=== PATIENT | female | born 1935 | race Caucasian/White ===

== ENCOUNTER 2016-10-24 07:42 | Emergency (ER) | payer MEDICARE, SELFPAY ==
[2016-10-24] MEDS ORDERED: DIPH,PERTUS(ACELL)TETVAC-LF 0.5 ML VIAL IM ONE (08:20)
--- NOTE | 2016-10-24 08:25 | ED ---
Lower Extremity Injury HPI - General Chief Complaint: Extremity Injury, Lower Stated Complaint: LEFT KNEE PAIN Time Seen by Provider: 10/24/16 08:01 Source: patient Mode of arrival: wheelchair Limitations: no limitations - History of Present Illness Initial Comments: 81-year-old female patient presents to emergency department today for complaints of left knee pain. Patient states his pain started yesterday. She denies any trauma or memory of a fall. Family states a fall is possible due to the patient having Alzheimer's and memory issues. Patient states the pain is worse when she tries to bear weight or bend the knee. She states most of her pain is to the posterior knee. There is a small abrasion with surrounding erythema to the anterior knee. Patient denies any fever or chills. She denies any headache, dizziness, weakness, chest pain, back pain, shortness of breath, abdominal pain, nausea, vomiting, hematuria, dysuria, urinary frequency, urinary urgency, or any other injuries. She denies any numbness or tingling in the extremity. - Related Data Previous Rx's Medication Instructions Recorded Acetaminophen-Codeine 300-30mg 1 tab PO Q6H PRN #20 tablet 10/24/16 [Tylenol #3] Cephalexin [Keflex] 500 mg PO Q6HR #40 cap 10/24/16 Allergies Allergy/AdvReac Type Severity Reaction Status Date / Time latex Allergy Rash/Hives Verified 10/24/16 07:52 Review of Systems ROS Statement: Those systems with pertinent positive or pertinent negative responses have been documented in the HPI. ROS Other: All systems not noted in ROS Statement are negative. Past Medical History Past Medical History: Dementia History of Any Multi-Drug Resistant Organisms: None Reported Past Surgical History: Hysterectomy, Joint Replacement Additional Past Surgical History / Comment(s): hip replacement, bilateral carpal tunnel release, right shoulder Past Psychological History: No Psychological Hx Reported Smoking Status: Never smoker Past Alcohol Use History: None Reported Past Drug Use History: None Reported General Exam Limitations: no limitations General appearance: alert, in no apparent distress Head exam: Present: atraumatic, normocephalic, normal inspection Eye exam: Present: normal appearance, PERRL, EOMI. Absent: scleral icterus, conjunctival injection, periorbital swelling ENT exam: Present: normal exam, normal oropharynx, mucous membranes moist Neck exam: Present: normal inspection, full ROM. Absent: tenderness, meningismus, lymphadenopathy Respiratory exam: Present: normal lung sounds bilaterally, rhonchi (Right lung base). Absent: respiratory distress, wheezes, rales, stridor Cardiovascular Exam: Present: regular rate, normal rhythm, normal heart sounds. Absent: systolic murmur, diastolic murmur, rubs, gallop, clicks GI/Abdominal exam: Present: soft, normal bowel sounds. Absent: distended, tenderness, guarding, rebound, rigid Extremities exam: Present: full ROM, normal capillary refill, other (Pedal pulses intact 2+.). Absent: normal inspection (Left anterior knee abrasion, surrounding erythema. Mild edema), tenderness, pedal edema, joint swelling, calf tenderness Back exam: Present: normal inspection Neurological exam: Present: alert, CN II-XII intact. Absent: oriented X3 ( Oriented 2. Normal for patient per family.) Psychiatric exam: Present: normal affect, normal mood Skin exam: Present: warm, dry, intact, normal color. Absent: rash Course Vital Signs 10/24/16 07:47 Temperature 97.9 F Pulse Rate 72 Respiratory 18 Rate Blood Pressure 135/58 O2 Sat by Pulse 95 Oximetry Medical Decision Making - Medical Decision Making 81-year-old female came in for evaluation of left knee pain. X-ray did not reveal any acute osseous lesion or significant joint effusion. Physical exam did reveal some cellulitis to the anterior knee is also small abrasion to the knee. Patient's tetanus will be updated. She'll be placed on Keflex as an outpatient. Instructed to follow-up with her primary care physician if symptoms don't start to improve over the next 1-2 days. Instructed to return for any new, worsening, or concerning symptoms. Patient and family verbalized understanding and agreement with this plan. - Radiology Data Radiology results: report reviewed, image reviewed Complete x-ray of the left knee reveals no acute osseous lesion. No significant joint effusion. Disposition Clinical Impression: Knee injury, Cellulitis of left knee Disposition: HOME SELF-CARE Condition: Stable Instructions: Knee Pain (ED), Cellulitis (ED) Additional Instructions: Use Orion wrap for comfort. Ice on the knee for 20 minutes at a time, at least 4 times per day. Complete antibiotic prescription and full. Up with primary care physician if symptoms don't start to improve over the next 1-2 days. Return for any new, worsening or concerning symptoms. Prescriptions: Acetaminophen-Codeine 300-30mg [Tylenol #3] 1 tab PO Q6H PRN #20 tablet PRN Reason: pain Cephalexin [Keflex] 500 mg PO Q6HR #40 cap Referrals: Augusto Brothers MD [Primary Care Provider] - 1-2 days Time of Disposition: 08:49
--- NOTE | 2016-10-24 08:33 | XR ---
EXAMINATION TYPE: XR knee complete LT DATE OF EXAM ORDERED: 10/24/2016 8:29 AM HISTORY: Pain. COMPARISON: None. FINDINGS: The bones are osteopenic, likely on the basis of osteoporosis. Joint spaces are reasonably well-maintained. There is no chondrocalcinosis. No acute fracture is seen. There is no joint effusio n. IMPRESSION: NO ACUTE OSSEOUS LESION.
[2016-10-24 09:01] VITALS: BP 120/79; PULSE 79; RESP 16; TEMP 99
== END 2016-10-24 09:01 | disposition home or self-care (01) ==
LOC: EC 07:42
DX: S80.212A Abrasion, left knee, initial encounter (principal); L03.116 Cellulitis of left lower limb; Z23 Encounter for immunization; Z96.649 Presence of unspecified artificial hip joint; Z91.040 Latex allergy status; X58.XXXA Exposure to other specified factors, initial encounter
CPT/HCPCS: 90471; 90715; 99283

== ENCOUNTER 2023-08-23 01:54 | Inpatient (IN) | payer MEDICARE, OTHER ==
[2023-08-23] MEDS ORDERED: ONDANSETRON 4 MG/2 ML VIAL IVP PRN (02:47)
[2023-08-23] MEDS ORDERED: NALOXONE 0.4 MG/ML 1 ML VIAL IV PRN (02:47)
[2023-08-23] MEDS ORDERED: MORPHINE SULFATE 4 MG/ML SYRINGE IV PRN (02:47)
--- NOTE | 2023-08-23 02:49 | ED ---
Fall HPI - General Stated Complaint: Fall Time Seen by Provider: 08/23/23 01:58 - History of Present Illness Initial Comments: Demented 87-year-old female brought to the ER today by ambulance for evaluation after an unwitnessed fall. Patient was found sitting on the ground next to her bed complained of pain in the bilateral hips. Daughter was contacted by telephone and confirmed that the patient had a right hip fracture repaired by Dr. Kovacs at [facility] in April 2023. Complaint: fall -: unknown Fall From: out of bed When Fall Occurred: other Fall Witnessed: no Place Fall Occurred: assisted/SNF Location - Extremities: Left: Thigh, Right: Thigh Severity: severe Associated Symptoms: denies - Related Data Previous Rx's Medication Instructions Recorded Acetaminophen-Codeine 300-30mg 1 tab PO Q6H PRN #20 tablet 10/24/16 [Tylenol #3] Cephalexin [Keflex] 500 mg PO Q6HR #40 cap 10/24/16 Allergies Allergy/AdvReac Type Severity Reaction Status Date / Time latex Allergy Rash/Hives Verified 10/24/16 07:52 Review of Systems ROS Statement: Those systems with pertinent positive or pertinent negative responses have been documented in the HPI. ROS Other: All systems not noted in ROS Statement are negative. Past Medical History Past Medical History: Dementia History of Any Multi-Drug Resistant Organisms: ESBL Date of last positivie culture/infection: 05/17/23 MDRO Source:: Urine Past Surgical History: Hysterectomy, Joint Replacement Additional Past Surgical History / Comment(s): hip replacement, bilateral carpal tunnel release, right shoulder Past Psychological History: No Psychological Hx Reported Past Alcohol Use History: None Reported Past Drug Use History: None Reported General Exam General appearance: alert Head exam: Present: atraumatic Eye exam: Present: PERRL ENT exam: Present: mucous membranes dry Respiratory exam: Absent: respiratory distress Cardiovascular Exam: Present: regular rate GI/Abdominal exam: Present: soft Extremities exam: Present: tenderness Left Hip exam: Present: tenderness. Absent: full ROM, dislocation Right Hip exam: Present: tenderness. Absent: full ROM, dislocation Neurological exam: Present: other (oriented to self) Skin exam: Present: warm, dry, intact Course Vital Signs 08/23/23 02:00 Temperature 97.8 F Pulse Rate 68 Respiratory 16 Rate Blood Pressure 133/67 O2 Sat by Pulse 92 L Oximetry Medical Decision Making - Medical Decision Making Was pt. sent in by a medical professional or institution (, PA, FLIGHT READINESS TECHNICIAN, urgent care, hospital, or assisted...) When possible be specific @ -[facility] Did you speak to anyone other than the patient for history (EMS, parent, family, police, friend...)? What history was obtained from this source @ -EMS, patient's daughter Did you review nursing and triage notes (agree or disagree)? Why? @ -I reviewed and agree with nursing and triage notes Were old charts reviewed (outside hosp., previous admission, EMS record, old EKG, old radiological studies, urgent care reports/EKG's, assisted records)? Report findings @ -No old charts were reviewed Differential Diagnosis (chest pain, altered mental status, abdominal pain women, abdominal pain men, vaginal bleeding, weakness, fever, dyspnea, syncope, headache, dizziness, GI bleed, back pain, seizure, CVA, palpatations, mental health)? @ -Differential includes fracture, contusion EKG interpreted by me (3pts min.). @ -As above X-rays interpreted by me (1pt min.). @ -X-ray of the right hip reveals previous repair with the nail, lesser trochanter is fractured but not necessarily acute X-ray of the left hip reveals an acute greater trochanteric fracture CT interpreted by me (1pt min.). @ - CT brain and C-spine with no acute intracranial processes, no obviously displaced cervical spine fractures US interpreted by me (1pt. min.). @ -None done What testing was considered but not performed or refused? (CT, X-rays, U/S, labs)? Why? @ -None What meds were considered but not given or refused? Why? @ -None Did you discuss the management of the patient with other professionals (professionals i.e. , PA, FLIGHT READINESS TECHNICIAN, lab, RT, psych nurse, manager social services, package sorter, teacher, chief legal officer, family service caseworker)? Give summary @ -S, orthopedics Dr. Huizar Was smoking cessation discussed for >3mins.? @ -No Was critical care preformed (if so, how long)? @ -No Were there social determinants of health that impacted care today? How? (Homelessness, low income, unemployed, alcoholism, drug addiction, transportation, low edu. Level, literacy, decrease access to med. care, fpc, rehab)? @ -No Was there de-escalation of care discussed even if they declined (Discuss DNR or withdrawal of care, Hospice)? DNR status @ -No What co-morbidities impacted this encounter? (DM, HTN, Smoking, COPD, CAD, Cancer, CVA, ARF, Chemo, Hep., AIDS, mental health diagnosis, sleep apnea, morbid obesity)? @ -Dementia Was patient admitted / discharged? Hospital course, mention meds given and route, prescriptions, significant lab abnormalities, going to OR and other pertinent info. @ -Admit Bedside x-rays were reviewed and reveal fractures in the bilateral hips, these findings were discussed with the patient's daughter and then with Dr. Huizar who reviewed the images states the right hip is chronic due to the previous nail procedures, left hip is an acute greater troch fracture recommends nonoperative management, admit to medicine Undiagnosed new problem with uncertain prognosis? @ -No Drug Therapy requiring intensive monitoring for toxicity (Heparin, Nitro, Insulin, Cardizem)? @ -No Were any procedures done? @ -No Diagnosis/symptom? @ -Left acute greater trochanter fracture Acute, or Chronic, or Acute on Chronic? @ -Acute Uncomplicated (without systemic symptoms) or Complicated (systemic symptoms)? @ -default Side effects of treatment? @ -No Exacerbation, Progression, or Severe Exacerbation? @ -No Poses a threat to life or bodily function? How? (Chest pain, [place], [place], pneumonia, PE, COPD, DKA, ARF, appy, cholecystitis, CVA, Diverticulitis, Homicidal, Suicidal, threat to staff... and all critical care pts) @ -No Disposition Clinical Impression: Fracture of greater trochanter of left femur, Dementia Disposition: ADMITTED IP TO THIS HOSP Condition: Stable Referrals: Augusto Brothers MD [Primary Care Provider] - 1-2 days
--- NOTE | 2023-08-23 03:09 | CT ---
EXAM: CT Head Without Intravenous Contrast CLINICAL HISTORY: ITS.REASON CT Reason: fall TECHNIQUE: Axial computed tomography images of the head/brain without intravenous contrast. CTDI is 45.2 mGy and DLP is 977.3 mGy-cm. This CT exam was performed using one or more of the following dose reduction techniques: automated exposure control, adjustment of the mA and/or kV according to patient size, and/or use of iterative reconstruction technique. COMPARISON: No relevant prior studies available. FINDINGS: Brain: No hemorrhage or mass effect. Ventricles: No hydrocephalus. Bones/joints: Unremarkable. Soft tissues: Unremarkable. Sinuses: No air fluid level. Mastoid air cells: Clear. IMPRESSION: No acute hemorrhage, hydrocephalus, or mass effect. EXAM: CT Cervical Spine Without Intravenous Contrast CLINICAL HISTORY: ITS.REASON CT Reason: fall TECHNIQUE: Axial computed tomography images of the cervical spine without intravenous contrast. CTDI is 7.4 mGy and DLP is 202.2 mGy-cm. This CT exam was performed using one or more of the following dose reduction techniques: automated exposure control, adjustment of the mA and/or kV according to patient size, and/or use of iterative reconstruction technique. COMPARISON: No relevant prior studies available. FINDINGS: Vertebrae: No acute fracture. Discs/spinal canal/neural foramina: degenerative changes. Soft tissues: No prevertebral swelling. IMPRESSION: No acute fracture or subluxation.
[2023-08-23 03:16] LABS: Basophils # (A) 0.1 k/uL (0-0.2); Basophils % (A) 1 %; Eosinophils # (A) 0.3 k/uL (0-0.7); Eosinophils % (A) 3 %; HCT 35.8 % (34.0-46.0); HGB 11.9 gm/dL (11.4-16.0); Hypochromasia Slight; Lymphocytes # (A) 1.6 k/uL (1.0-4.8); Lymphocytes % (A) 16 %; MCH 28.1 pg (25.0-35.0); MCHC 33.1 g/dL (31.0-37.0); MCV 84.8 fL (80.0-100.0); Mean Platelet Volume 7.7; Monocytes # (A) 0.6 k/uL (0-1.0); Monocytes % (A) 6 %; Neutrophils # (A) 7.4 k/uL (1.3-7.7); Neutrophils % (A) 73 %; Platelet Count 309 k/uL (150-450); RBC 4.22 m/uL (3.80-5.40); RDW 14.2 % (11.5-15.5); WBC 10.2 k/uL (3.8-10.6)
[2023-08-23 03:36] LABS: Amphetamine Screen,Urine Not Detected (NotDetected); Barbiturate Screen,Urine Not Detected (NotDetected); Benzodiazepines Screen,Urine Not Detected (NotDetected); Cocaine Screen,Urine Not Detected (NotDetected); Methadone Screen, Urine Not Detected (NotDetected); Opiate Screen,Urine Not Detected (NotDetected); Oxycodone Screen, Urine Not Detected (NotDetected); Partial Thromboplastin Time 22.1 sec (22.0-30.0); Phencyclidine Screen,Urine Not Detected (NotDetected); Prothrombin Time 11.2 sec (10.0-12.5); Tricyclic Antidepressant,Urine Not Detected (NotDetected); Urn Cannabinoid Scrn Not Detected (NotDetected)
[2023-08-23] MEDS: 0.9% NACL WITH KCL 20 MEQ/L 1,000 ML IV SCH (03:40)
[2023-08-23 03:55] LABS: ALT 19 U/L (4-34); AST 24 U/L (14-36); African American GFR (CKD) 57 (>60 ml/min/1.73 sqM); Albumin 3.6 g/dL (3.5-5.0); Alcohol <10 mg/dL; Alkaline Phosphatase 111 U/L (38-126); Anion Gap 7 mmol/L; Blood Urea Nitrogen 21 mg/dL (7-17); Calcium 9.3 mg/dL (8.4-10.2); Carbon Dioxide 24 mmol/L (22-30); Chloride 107 mmol/L (98-107); Glucose 109 mg/dL (74-99); Non-African American GFR(CKD) 50 (>60 ml/min/1.73 sqM); Potassium 4.3 mmol/L (3.5-5.1); Sodium 138 mmol/L (137-145); Total Bilirubin 0.5 mg/dL (0.2-1.3); Total Protein 6.8 g/dL (6.3-8.2)
--- NOTE | 2023-08-23 04:52 | XR ---
EXAM: XR Chest, 1 View CLINICAL HISTORY: ITS.REASON XR Reason: fall TECHNIQUE: Frontal view of the chest. COMPARISON: No relevant prior studies available. IMPRESSION: Cardiomegaly. Mildly Elevated right hemidiaphragm No acute findings.
--- NOTE | 2023-08-23 04:53 | XR ---
ADDENDUM - Added by Nicole Membreno MD on 08/23/2023 4:54 AM (-08:00) EXAM: XR Pelvis, 1 or 2 Views CLINICAL HISTORY: ITS.REASON XR Reason: fall TECHNIQUE: Frontal view of the pelvis. COMPARISON: No relevant prior studies available. IMPRESSION: Right femoral lesser trochanter is displaced medially compared to the rest of the femur. Age-indeterminate fracture. Right femoral ORIF. Left hip arthroplasty. EXAM: XR Pelvis, 1 or 2 Views CLINICAL HISTORY: ITS.REASON XR Reason: fall TECHNIQUE: Frontal view of the pelvis. COMPARISON: No relevant prior studies available. FINDINGS: Bones/joints: No acute fracture. No dislocation. Left hip arthroplasty hardware. Right femoral ORIF. Soft tissues: Unremarkable. IMPRESSION: No acute findings.
--- NOTE | 2023-08-23 04:55 | XR ---
EXAM: XR Bilateral Hips With Pelvis When Performed, 4 or More Views CLINICAL HISTORY: ITS.REASON XR Reason: fall TECHNIQUE: Four or more views of the bilateral hips with pelvis when performed. COMPARISON: No relevant prior studies available. IMPRESSION: Right femoral lesser trochanter is displaced medially compared to the rest of the femur. Consider cross-sectional imaging. Age-indeterminate fracture. Right femoral ORIF. Left hip arthroplasty.
[2023-08-23] MEDS ORDERED: traMADol 50 MG TAB PO PRN (08:29)
[2023-08-23] MEDS ORDERED: ACETAMINOPHEN TAB 325 MG TAB PO PRN (08:29)
[2023-08-23] MEDS ORDERED: SENNOSIDES 8.6 MG TAB PO PRN (08:29)
[2023-08-23] MEDS ORDERED: QUEtiapine 25 MG TAB PO PRN (08:41)
--- NOTE | 2023-08-23 08:51 | P.HPIM ---
History of Present Illness This is a pleasant 87 years old female with past medical history of dementia from [facility] Patient was found on the ground at [facility], it is not known if patient lost consciousness or she syncopized. Patient was sent to the emergency room after that Currently patient awake alert might be agitated She can't remember her first name only, she cannot remember last name, she is confused to the surrounding She is somewhat poor historian but answers questions and communicate. She denies chest pain or dyspnea. No abdominal pain, no urinary complaints. Earlier she was complaining of from feet pain and dyspnea she has some redness in her left small toes and forefoot Sitter at bedside Patient is hemodynamically stable Labs reviewed including CBC, BMP and liver enzymes are unremarkable Urine drug screen and alcohol level were negative Influenza A and type B, RSV, SARS (coronavirus) are and detected Pelvis x-ray showing no fracture Hip x-ray showing displaced right lesser trochanter Chest x-ray showed no acute process CT of the head and neck is negative for any acute process Review of Systems Review of systems CONSTITUTIONAL: No fever, no malaise, no fatigue. HEENT: No recent visual problems or hearing problems. Denied any sore throat. CARDIOVASCULAR: No orthopnea, PND, no palpitations, no syncope. PULMONARY: No shortness of breath, no cough, no hemoptysis. GASTROINTESTINAL: No diarrhea, no nausea, no vomiting, no abdominal pain. Normoactive bowel sounds. NEUROLOGICAL: No headaches, no weakness, no numbness. HEMATOLOGICAL: Denies any bleeding or petechiae. GENITOURINARY: Denies any burning micturition, frequency, or urgency. MUSCULOSKELETAL/RHEUMATOLOGICAL: Denies any joint pain, swelling, or any muscle pain. ENDOCRINE: Denies any polyuria or polydipsia. Past Medical History Past Medical History: Dementia History of Any Multi-Drug Resistant Organisms: ESBL Date of last positivie culture/infection: 05/17/23 MDRO Source:: Urine Past Surgical History: Hysterectomy, Joint Replacement Additional Past Surgical History / Comment(s): hip replacement, bilateral carpal tunnel release, right shoulder Past Psychological History: No Psychological Hx Reported Past Alcohol Use History: None Reported Past Drug Use History: None Reported Medications and Allergies Home Medications Medication Instructions Recorded Confirmed Type Acetaminophen Tab [Tylenol] 650 mg PO Q4H PRN 08/23/23 08/23/23 History Amiodarone [Cordarone] 100 mg PO DAILY 08/23/23 08/23/23 History Ascorbic Acid [Vitamin C] 500 mg PO DAILY 08/23/23 08/23/23 History Aspirin EC [Ecotrin Low Dose] 81 mg PO DAILY 08/23/23 08/23/23 History Cyanocobalamin [Vitamin B-12] 500 mcg PO DAILY 08/23/23 08/23/23 History Diclofenac Sodium Gel [Voltaren 1% 1 applic TOPICAL Q6H PRN 08/23/23 08/23/23 History Gel] Divalproex Sprinkle [Depakote 125 mg PO DAILY@1700 08/23/23 08/23/23 History Sprinkle] Ergocalciferol [Vitamin D2 (1250 1,250 mcg PO NINO 08/23/23 08/23/23 History Mcg = 55823 Iu)] Famotidine [Pepcid] 20 mg PO DAILY@0600 08/23/23 08/23/23 History Lactose-Reduced Food [Ensure Plus] 1 can PO TID 08/23/23 08/23/23 History Melatonin 3 mg PO HS 08/23/23 08/23/23 History Sennosides [Senokot] 8.6 mg PO BID PRN 08/23/23 08/23/23 History Z-Guard 1 applic TOPICAL BID 08/23/23 08/23/23 History Zinc Gluconate [Zinc] 50 mg PO DAILY 08/23/23 08/23/23 History amLODIPine [Norvasc] 2.5 mg PO DAILY 08/23/23 08/23/23 History traMADol HCl [Ultram] 50 mg PO TID PRN 08/23/23 08/23/23 History Allergies Allergy/AdvReac Type Severity Reaction Status Date / Time latex Allergy Rash/Hives Verified 08/23/23 07:44 Physical Exam Vitals: Vital Signs Temp Pulse Resp BP Pulse Ox 08/23/23 06:00 66 18 123/57 99 08/23/23 05:00 72 18 90/70 99 08/23/23 04:00 69 18 115/61 99 08/23/23 03:43 71 16 102/65 99 08/23/23 02:00 97.8 F 68 16 133/67 92 L Intake and Output 08/22/23 08/23/23 08/23/23 22:59 06:59 14:59 Other: Weight 55.111 kg -GENERAL: The patient is alert and oriented x0, mildly agitated and restless, not in any acute distress. Well developed, well nourished. HEENT: Pupils are round and equally reacting to light. EOMI. No scleral icterus. No conjunctival pallor. Normocephalic, atraumatic. No pharyngeal erythema. No thyromegaly. CARDIOVASCULAR: S1 and S2 present. No murmurs, rubs, or gallops. PULMONARY: Chest is clear to auscultation, no wheezing , no crackles. ABDOMEN: Soft, nontender, nondistended, normoactive bowel sounds. No palpable organomegaly. MUSCULOSKELETAL: No joint swelling or deformity. -EXTREMITIES: No cyanosis, clubbing, or pedal edema. Redness and swelling of the left L5 toes and forefoot with no significant open wound or discharge but has bad nails NEUROLOGICAL: Gross neurological examination did not reveal any focal deficits. SKIN: No rashes. no petechiae. Results CBC & Chem 7: 08/23/23 02:56 08/23/23 02:56 Labs: Abnormal Lab Results - Last 24 Hours (Table) 08/23/23 Range/Units 02:56 BUN 21 H (7-17) mg/dL Glucose 109 H (74-99) mg/dL Assessment and Plan Assessment: Found on the ground, fell at [facility], unknown if loss of consciousness Dementia, with behavioral problems and agitation Displaced right lesser trochanter Possible cellulitis of the left forefoot Dehydration Plan: Continue with normal saline 50 mL per hour 25 hours Orthopedic team were consulted for possible hip fracture Check EKG and urinalysis and bladder scan Sitter at bedside Seroquel when necessary Keflex for cellulitis Labs and medication were reviewed.. Continue same treatment. Continue with symptomatic treatment. Resume home medication. Monitor labs and vitals. DVT and GI prophylaxis. Further recommendations as per clinical course of the patient DVT prophylaxis: Subcutaneous heparin GI Prophylaxis: Pepcid Prognosis is guarded
[2023-08-23] MEDS: MORPHINE SULFATE 2 MG/ML SYRINGE IVP PRN ×4 (09:18→22:05)
[2023-08-23] MEDS: CEPHALEXIN 500 MG CAP PO SCH ×3 (13:03→21:51)
[2023-08-23] MEDS: HEPARIN SODIUM,PORCINE 5,000 UNIT/ML 1 ML VIAL SQ SCH ×2 (13:33→21:50)
[2023-08-23] MEDS: amLODIPine 2.5 MG TAB PO SCH (13:33)
[2023-08-23] MEDS: CYANOCOBALAMIN 500 MCG TAB PO SCH (13:33)
[2023-08-23] MEDS: ASPIRIN 81 MG PO SCH (13:33)
[2023-08-23] MEDS: ASCORBIC ACID 500 MG TAB PO SCH (13:33)
--- NOTE | 2023-08-23 13:46 | P.CNOR ---
History of Present Illness - [facility] Consult date: 08/23/23 Consult reason: fracture (Left greater trochanter fracture) History of present illness: The patient is an 87-year-old female who presented to the emergency department at [facility] via EMS from [facility] last night. She is a resident at [facility] and was found sitting beside her bed. She was complaining of bilateral hip pain. She is status post IT nail of the right hip by Dr. Kovacs at [facility] in April 2023 and left total hip arthroplasty by Dr. Morataya in 2000. CT of the head and neck revealed no acute fractures or hemorrhage. X- rays of the bilateral hip and pelvis reveal a nondisplaced greater trochanter fracture on the left and a stable IT fixation on the right without new fra ctures. Orthopedics was consulted for further evaluation and care. Today, the patient is very confused with a history of dementia. She is alert and able to answer simple questions. There is a sitter at the bedside while in the ER. No family present. Review of Systems ROS unobtainable: due to mental status Past Medical History Past Medical History: Dementia History of Any Multi-Drug Resistant Organisms: ESBL Year Discovered:: 05/17/23 MDRO Source:: Urine Past Surgical History: Hysterectomy, Joint Replacement Additional Past Surgical History / Comment(s): hip replacement, bilateral carpal tunnel release, right shoulder Past Psychological History: No Psychological Hx Reported Past Alcohol Use History: None Reported Past Drug Use History: None Reported Medications and Allergies Home Medications Medication Instructions Recorded Confirmed Type Acetaminophen Tab [Tylenol] 650 mg PO Q4H PRN 08/23/23 08/23/23 History Amiodarone [Cordarone] 100 mg PO DAILY 08/23/23 08/23/23 History Ascorbic Acid [Vitamin C] 500 mg PO DAILY 08/23/23 08/23/23 History Aspirin EC [Ecotrin Low Dose] 81 mg PO DAILY 08/23/23 08/23/23 History Cyanocobalamin [Vitamin B-12] 500 mcg PO DAILY 08/23/23 08/23/23 History Diclofenac Sodium Gel [Voltaren 1% 1 applic TOPICAL Q6H PRN 08/23/23 08/23/23 History Gel] Divalproex Sprinkle [Depakote 125 mg PO DAILY@1700 08/23/23 08/23/23 History Sprinkle] Ergocalciferol [Vitamin D2 (1250 1,250 mcg PO NINO 08/23/23 08/23/23 History Mcg = 63200 Iu)] Famotidine [Pepcid] 20 mg PO DAILY@0600 08/23/23 08/23/23 History Lactose-Reduced Food [Ensure Plus] 1 can PO TID 08/23/23 08/23/23 History Melatonin 3 mg PO HS 08/23/23 08/23/23 History Sennosides [Senokot] 8.6 mg PO BID PRN 08/23/23 08/23/23 History Z-Guard 1 applic TOPICAL BID 08/23/23 08/23/23 History Zinc Gluconate [Zinc] 50 mg PO DAILY 08/23/23 08/23/23 History amLODIPine [Norvasc] 2.5 mg PO DAILY 08/23/23 08/23/23 History traMADol HCl [Ultram] 50 mg PO TID PRN 08/23/23 08/23/23 History Allergies Allergy/AdvReac Type Severity Reaction Status Date / Time latex Allergy Rash/Hives Verified 08/23/23 07:44 Physical Examination The patient is an 87 year-old female in no acute distress. She is alert and oriented 1. The patient's head is normocephalic, atraumatic. No pain upon palpation to the cervical spine, no step-offs noted. Exam of the bilateral upper extremities reveal no obvious deformities or wounds. Exam of the right lower extremity reveals no deformity or wounds. No pain upon range of motion of the right leg. Exam of the left lower extremity reveals some guarding to the left hip. There is pain to palpation to the lateral hip over the great troch. There is pain and guarding to log rolling of the left leg. Calf is soft and nontender. She is able to wiggle his toes. Circulatory status is intact. Results X-rays of the bilateral hips and pelvis reveals nondisplaced greater trochanter fracture on the left with stable position of the CARRILLO components and a stable IT fixation on the right without new fractures. - Labs Labs: Abnormal Lab Results - Last 24 Hours (Table) 08/23/23 Range/Units 02:56 BUN 21 H (7-17) mg/dL Glucose 109 H (74-99) mg/dL H & H 08/23/23 Range/Units 02:56 Hgb 11.9 (11.4-16.0) gm/dL Hct 35.8 (34.0-46.0) % Coagulation 08/23/23 Range/Units 02:56 INR 1.0 (<1.2) Result Diagrams: 08/23/23 02:56 08/23/23 02:56 Assessment and Plan (1) Fall Current Visit: Yes Status: Acute Code(s): W19.XXXA - UNSPECIFIED FALL, INI TIAL ENCOUNTER SNOMED Code(s): 7580751 (2) Dementia Current Visit: Yes Status: Acute Code(s): F03.90 - UNSP DEMENTIA, UNSP SEVERITY, WITHOUT BEH/PSYCH/MOOD/ANX SNOMED Code(s): 31258954 (3) Fracture of greater trochanter of left femur Current Visit: Yes Status: Acute Code(s): S72.112A - DISP FX OF GREATER TROCHANTER OF LEFT FEMUR, INIT SNOMED Code(s): 281915558 Plan: The clinical and x-ray findings were reviewed with Dr. Huizar. She may toe touch weightbear with a walker on the left leg. She should limit abduction of the left leg as much as possible, which will be difficult due to her dementia. PT and OT have been consulted. She is orthopedically stable at this time and may return back to [facility] when her pain is controlled and she is able to work with therapy. She may either follow up in our office or with Dr. Kovacs, whichever is convenient for [facility]. We will sign off at this time.
[2023-08-23] MEDS: AMIODARONE 100 MG TAB PO SCH (18:49)
[2023-08-23] MEDS: DIVALPROEX SPRINKLE 125 MG CAP.SPRINK PO SCH (18:49)
[2023-08-24] MEDS: 0.9% NACL WITH KCL 20 MEQ/L 1,000 ML IV SCH ×2 (00:24→20:40)
[2023-08-24] MEDS: FAMOTIDINE 20 MG TAB PO SCH (05:20)
[2023-08-24 05:32] LABS: Amorphous Sediment,Urine Occasional /hpf; Appearance,Urine Cloudy (Clear); Bacteria,Urine Occasional /hpf; Bilirubin,Urine Negative (Negative); Blood,Urine Small (Negative); Color,Urine Light Yellow; Glucose,Urine (UA) Negative (Negative); Ketones,Urine Negative (Negative); Leukocyte Esterase,Urine Large (Negative); Nitrite,Urine Negative (Negative); Protein,Urine 1+ (Negative); RBC,Urine 21 /hpf (0-5); Specific Gravity,Urine 1.019 (1.001-1.035); Squamous Epithelial Cell,Urine 4 /hpf (0-4); Urobilinogen,Urine <2.0 mg/dL (<2.0); WBC,Urine >182 /hpf (0-5)
[2023-08-24] MEDS: ASPIRIN 81 MG PO SCH (08:34)
[2023-08-24] MEDS: CYANOCOBALAMIN 500 MCG TAB PO SCH (08:34)
[2023-08-24] MEDS: ASCORBIC ACID 500 MG TAB PO SCH (08:34)
[2023-08-24] MEDS: AMIODARONE 100 MG TAB PO SCH (08:34)
[2023-08-24] MEDS: HEPARIN SODIUM,PORCINE 5,000 UNIT/ML 1 ML VIAL SQ SCH ×2 (08:34→20:40)
[2023-08-24] MEDS: CEPHALEXIN 500 MG CAP PO SCH (08:34)
[2023-08-24] MEDS: amLODIPine 2.5 MG TAB PO SCH (08:34)
--- NOTE | 2023-08-24 10:42 | P.PN ---
Subjective This is a pleasant 87 years old female with past medical history of dementia from snf Patient was found on the ground at [facility], it is not known if patient lost consciousness or she syncopized. Patient was sent to the emergency room after that Currently patient awake alert might be agitated She can't remember her first name only, she cannot remember last name, she is confused to the surrounding She is somewhat poor historian but answers questions and communicate. She denies chest pain or dyspnea. No abdominal pain, no urinary complaints. Earlier she was complaining of from feet pain and dyspnea she has some redness in her left small toes and forefoot Sitter at bedside Patient is hemodynamically stable Labs reviewed including CBC, BMP and liver enzymes are unremarkable Urine drug screen and alcohol level were negative Influenza A and type B, RSV, SARS (coronavirus) are and detected Pelvis x-ray showing no fracture Hip x-ray showing displaced right lesser trochanter Chest x-ray showed no acute process CT of the head and neck is negative for any acute process 08/24/2023 Patient still confused very lethargic but calm No specific complaints Orthopedic team recommended conservative management with no surgical intervention Her urinalysis came back positive and she has low-grade fever of 100. She was on Keflex, which was discontinued and started on Rocephin and we will order urine culture Discussed with the bedside nurse Review of systems CONSTITUTIONAL: No fever, no malaise, no fatigue. HEENT: No recent visual problems or hearing problems. Denied any sore throat. CARDIOVASCULAR: No orthopnea, PND, no palpitations, no syncope. PULMONARY: No shortness of breath, no cough, no hemoptysis. GASTROINTESTINAL: No diarrhea, no nausea, no vomiting, no abdominal pain. Normoactive bowel sounds. Active Medications Generic Name Dose Route Start Last Admin Trade Name Freq PRN Reason Stop Dose Admin Acetaminophen 650 mg 08/23/23 08:29 Acetaminophen Tab 325 Mg Tab PO Q4H PRN Pain or Fever > 100.5 Amiodarone HCl 100 mg 08/23/23 09:00 08/24/23 08:34 Amiodarone 100 Mg Tab PO 100 mg DAILY TOBY Administration Amlodipine Besylate 2.5 mg 08/23/23 09:00 08/24/23 08:34 Amlodipine 2.5 Mg Tab PO 2.5 mg DAILY TOBY Administration Ascorbic Acid 500 mg 08/23/23 09:00 08/24/23 08:34 Ascorbic Acid 500 Mg Tab PO 500 mg DAILY TOBY Administration Aspirin 81 mg 08/23/23 09:00 08/24/23 08:34 Aspirin 81 Mg PO 81 mg DAILY TOBY Administration Cyanocobalamin 500 mcg 08/23/23 09:00 08/24/23 08:34 Cyanocobalamin 500 Mcg Tab PO 500 mcg DAILY TOBY Administration Divalproex Sodium 125 mg 08/23/23 17:00 08/23/23 18:49 Divalproex Sprinkle 125 Mg Cap.Sprink PO Not Given DAILY@1700 [facility] Ergocalciferol 1,250 mcg 08/29/23 09:00 Ergocalciferol 1,250 Mcg (50,000 Iu) Capsule PO Benitez@0900 [facility] Famotidine 20 mg 08/24/23 06:00 08/24/23 05:20 Famotidine 20 Mg Tab PO 20 mg DAILY@0600 [facility] Administration Heparin Sodium (Porcine) 5,000 unit 08/23/23 09:00 08/24/23 08:34 Heparin Sodium,Porcine 5,000 Unit/Ml 1 Ml Vial SQ 5,000 unit Q12HR TOBY Administration Potassium Chloride/Sodium Chloride 1,000 mls @ 50 mls/hr 08/23/23 03:00 08/24/23 00:24 Ns-Kcl 20 Meq/L Iv Solution IV 50 mls/hr .Q20H TOBY Administration Ceftriaxone Sodium 1 gm/ 50 mls @ 100 mls/hr 08/24/23 10:45 Sodium Chloride IVPB Q24HR [facility] Protocol Morphine Sulfate 4 mg 08/23/23 02:47 Morphine Sulfate 4 Mg/Ml Syringe IV Q4HR PRN Severe Pain (Scale 7 to 10) Morphine Sulfate 1 mg 08/23/23 08:40 08/23/23 22:05 Morphine Sulfate 2 Mg/Ml Syringe IVP 1 mg Q3HR PRN Administration Pain/Discomfort Naloxone HCl 0.2 mg 08/23/23 02:47 Naloxone 0.4 Mg/Ml 1 Ml Vial IV Q2M PRN Opioid Reversal Ondansetron HCl 4 mg 08/23/23 02:47 Ondansetron 4 Mg/2 Ml Vial IVP Q8HR PRN Nausea And Vomiting Quetiapine Fumarate 12.5 mg 08/23/23 08:41 08/23/23 21:51 Quetiapine 25 Mg Tab PO 12.5 mg BID PRN Administration Agitation Senna 8.6 mg 08/23/23 08:29 Sennosides 8.6 Mg Tab PO BID PRN Constipation Tramadol HCl 50 mg 08/23/23 08:29 08/23/23 15:19 Tramadol 50 Mg Tab PO 50 mg TID PRN Administration Pain Objective - Vital Signs Vital signs: Vital Signs Temp 98.2 F 08/24/23 08:00 Pulse 82 08/24/23 08:00 Resp 18 08/24/23 08:00 BP 122/67 08/24/23 08:00 Pulse Ox 95 08/24/23 08:00 FiO2 Intake & Output 08/23/23 08/24/23 08/24/23 18:59 06:59 18:59 Intake Total 240 Output Total 200 Balance 240 -200 Weight 55.111 kg Intake: Oral 240 Output: Urine 200 Other: # Voids 1 2 # Bowel Movements 1 - Exam -GENERAL: The patient is awake alert but confused and sleepy, not in any acute distress. Well developed, well nourished. HEENT: Pupils are round and equally reacting to light. EOMI. No scleral icterus. No conjunctival pallor. Normocephalic, atraumatic. No pharyngeal erythema. No thyromegaly. CARDIOVASCULAR: S1 and S2 present. No murmurs, rubs, or gallops. PULMONARY: Chest is clear to auscultation, no wheezing , no crackles. ABDOMEN: Soft, nontender, nondistended, normoactive bowel sounds. No palpable organomegaly. MUSCULOSKELETAL: No joint swelling or deformity. EXTREMITIES: No cyanosis, clubbing, or pedal edema. NEUROLOGICAL: Gross neurological examination did not reveal any focal deficits. SKIN: No rashes. no petechiae. - Labs CBC & Chem 7: 08/23/23 02:56 08/23/23 02:56 Labs: Abnormal Lab Results - Last 24 Hours (Table) 08/24/23 Range/Units 04:31 Urine Appearance Cloudy H (Clear) Urine Protein 1+ H (Negative) Urine Blood Small H (Negative) Ur Leukocyte Esterase Large H (Negative) Urine RBC 21 H (0-5) /hpf Urine WBC >182 H (0-5) /hpf Amorphous Sediment Occasional H (None) /hpf Urine Bacteria Occasional H (None) /hpf Assessment and Plan Assessment: Acute urinary tract infection metabolic encephalopathy Found on the ground, fell at snf, unknown if loss of consciousness Dementia, with behavioral problems and agitation Displaced right lesser trochanter Possible cellulitis of the left forefoot Dehydration Plan: Start ceftriaxone and follow-up urine culture Continue with normal saline 50 mL per hour 25 hours Orthopedic team were consulted for possible hip fracture, they recommended conservative management Check EKG and bladder scan Sitter at bedside Seroquel when necessary Keflex for cellulitis Labs and medication were reviewed.. Continue same treatment. Continue with symptomatic treatment. Resume home medication. Monitor labs and vitals. DVT and GI prophylaxis. Further recommendations as per clinical course of the patient DVT prophylaxis: Subcutaneous heparin GI Prophylaxis: Pepcid Prognosis is guarded
[2023-08-24 14:34] VITALS: BMI 20.2
[2023-08-24] MEDS: DIVALPROEX SPRINKLE 125 MG CAP.SPRINK PO SCH ×2 (17:12→17:24)
[2023-08-24] MEDS: MORPHINE SULFATE 2 MG/ML SYRINGE IVP PRN (17:21)
[2023-08-25] MEDS: FAMOTIDINE 20 MG TAB PO SCH (05:11)
[2023-08-25] MEDS: MORPHINE SULFATE 2 MG/ML SYRINGE IVP PRN ×2 (05:13→10:30)
[2023-08-25] MEDS: AMIODARONE 100 MG TAB PO SCH (09:18)
[2023-08-25] MEDS: ASPIRIN 81 MG PO SCH (09:18)
[2023-08-25] MEDS: ASCORBIC ACID 500 MG TAB PO SCH (09:18)
[2023-08-25] MEDS: HEPARIN SODIUM,PORCINE 5,000 UNIT/ML 1 ML VIAL SQ SCH ×2 (09:18→20:42)
[2023-08-25] MEDS: CYANOCOBALAMIN 500 MCG TAB PO SCH (09:18)
[2023-08-25] MEDS: amLODIPine 2.5 MG TAB PO SCH (09:18)
[2023-08-25] MEDS: DIVALPROEX SPRINKLE 125 MG CAP.SPRINK PO SCH (16:59)
[2023-08-25] MEDS: 0.9% NACL WITH KCL 20 MEQ/L 1,000 ML IV SCH (16:59)
[2023-08-25] MEDS ORDERED: MORPHINE SULFATE 2 MG/ML SYRINGE IVP PRN (18:55)
--- NOTE | 2023-08-25 18:58 | P.PN ---
Subjective This is a pleasant 87 years old female with past medical history of dementia from detention Patient was found on the ground at [facility], it is not known if patient lost consciousness or she syncopized. Patient was sent to the emergency room after that Currently patient awake alert might be agitated She can't remember her first name only, she cannot remember last name, she is confused to the surrounding She is somewhat poor historian but answers questions and communicate. She denies chest pain or dyspnea. No abdominal pain, no urinary complaints. Earlier she was complaining of from feet pain and dyspnea she has some redness in her left small toes and forefoot Sitter at bedside Patient is hemodynamically stable Labs reviewed including CBC, BMP and liver enzymes are unremarkable Urine drug screen and alcohol level were negative Influenza A and type B, RSV, SARS (coronavirus) are and detected Pelvis x-ray showing no fracture Hip x-ray showing displaced right lesser trochanter Chest x-ray showed no acute process CT of the head and neck is negative for any acute process 08/24/2023 Patient still confused very lethargic but calm No specific complaints Orthopedic team recommended conservative management with no surgical intervention Her urinalysis came back positive and she has low-grade fever of 100. She was on Keflex, which was discontinued and started on Rocephin and we will order urine culture Discussed with the bedside nurse 08/25/2023 She was told patient is still sleepy and lethargic, she is eating 25% of her meals except one time she did 50% She still getting morphine 1 mg every 12 hours when necessary, she is not getting the 12.5 mg of when necessary Seroquel. However we will do a swallow evaluation tomorrow Urine culture is still pending and she remains on ceftriaxone for UTI Possible discharge in 24-48 hours if she keeps improvement however long-term prognosis is guarded Objective - Vital Signs Vital signs: Vital Signs Temp 98.3 F 08/25/23 06:50 Pulse 83 08/25/23 06:50 Resp 17 08/25/23 06:50 BP 123/80 08/25/23 06:50 Pulse Ox 98 08/25/23 06:50 FiO2 Intake & Output 08/24/23 08/25/23 08/25/23 18:59 06:59 18:59 Output Total 300 283 Balance -300 -283 Weight 55.111 kg Output: Urine 300 Post Void Residual 283 Other: Voiding Method Diaper Diaper Diaper # Voids 2 3 - Exam -GENERAL: The patient is awake alert but confused and sleepy, not in any acute distress. Well developed, well nourished. HEENT: Pupils are round and equally reacting to light. EOMI. No scleral icterus. No conjunctival pallor. Normocephalic, atraumatic. No pharyngeal erythema. No thyromegaly. CARDIOVASCULAR: S1 and S2 present. No murmurs, rubs, or gallops. PULMONARY: Chest is clear to auscultation, no wheezing , no crackles. ABDOMEN: Soft, nontender, nondistended, normoactive bowel sounds. No palpable organomegaly. MUSCULOSKELETAL: No joint swelling or deformity. EXTREMITIES: No cyanosis, clubbing, or pedal edema. NEUROLOGICAL: Gross neurological examination did not reveal any focal deficits. SKIN: No rashes. no petechiae. - Labs CBC & Chem 7: 08/23/23 02:56 08/23/23 02:56 Assessment and Plan Assessment: Acute urinary tract infection metabolic encephalopathy Found on the ground, fell at detention, unknown if loss of consciousness Dementia, with behavioral problems and agitation Displaced right lesser trochanter Possible cellulitis of the left forefoot Dehydration Plan: Start ceftriaxone and follow-up urine culture Continue with normal saline 50 mL per hour 25 hours Orthopedic team were consulted for possible hip fracture, they recommended conservative management Check EKG and bladder scan Sitter at bedside Seroquel when necessary Keflex for cellulitis Labs and medication were reviewed.. Continue same treatment. Continue with symptomatic treatment. Resume home medication. Monitor labs and vitals. DVT and GI prophylaxis. Further recommendations as per clinical course of the patient DVT prophylaxis: Subcutaneous heparin GI Prophylaxis: Pepcid Prognosis is guarded
[2023-08-25 19:59] LABS: Appearance,Urine Turbid (Clear); Bacteria,Urine Rare /hpf; Bilirubin,Urine Negative (Negative); Blood,Urine Moderate (Negative); Color,Urine Light Yellow; Glucose,Urine (UA) Negative (Negative); Ketones,Urine Trace (Negative); Leukocyte Esterase,Urine Large (Negative); Nitrite,Urine Negative (Negative); PH, Urine 5.5 (5.0-8.0); Protein,Urine 1+ (Negative); RBC,Urine 69 /hpf (0-5); Squamous Epithelial Cell,Urine 5 /hpf (0-4); Urobilinogen,Urine <2.0 mg/dL (<2.0); WBC,Urine >182 /hpf (0-5)
[2023-08-26] MEDS: FAMOTIDINE 20 MG TAB PO SCH (05:24)
[2023-08-26] MEDS: ASCORBIC ACID 500 MG TAB PO SCH (08:51)
[2023-08-26] MEDS: HEPARIN SODIUM,PORCINE 5,000 UNIT/ML 1 ML VIAL SQ SCH (08:51)
[2023-08-26] MEDS: ASPIRIN 81 MG PO SCH (08:52)
[2023-08-26] MEDS: CYANOCOBALAMIN 500 MCG TAB PO SCH (08:52)
[2023-08-26] MEDS: amLODIPine 2.5 MG TAB PO SCH (08:52)
[2023-08-26] MEDS: AMIODARONE 100 MG TAB PO SCH (08:52)
[2023-08-26 09:32] VITALS: RESP 18
[2023-08-26] MEDS: 0.9% NACL WITH KCL 20 MEQ/L 1,000 ML IV SCH (13:02)
--- NOTE | 2023-08-26 14:14 | P.DS ---
Providers Date of admission: 08/23/23 02:47 Attending physician: Екатерина Salgado Consults: 08/23/23 02:47 Consult Physician Routine Consulting Provider: Delvin Huizar Consult Reason/Comments: fracture Do you want consulting provider notified?: Already Contacted Primary care physician: Fiona Hernandez Hospital Course: Diagnoses: Acute urinary tract infection metabolic encephalopathy Found on the ground, fell at [facility], unknown if loss of consciousness Dementia, with behavioral problems and agitation Displaced right lesser trochanter Possible cellulitis of the left forefoot Dehydration Hospital course: This is a pleasant 87 years old female with past medical history of dementia from fpc Patient was found on the ground at [facility], it is not known if patient lost consciousness or she syncopized. Patient was sent to the emergency room after that Patien is found to have acute drainage tract infection, she was treated with ceftriaxone, urine culture is growing [place] patient will be discharged on short course of oral Ceftin. Also patient with evidence of displaced right lesser trochanter, orthopedic team recommended conservative management and follow-up outpatient with Dr. Kovacs has continued to [facility], maybe and 2-3 weeks. Please refer to discharge instructions for more detail Other than that patient is back to mental baseline, she is calm and relaxed and pleasant. She denies any specific symptoms. She communicate appropriately. She denies abdominal pain vomiting or diarrhea. She has little dysuria and is improving. No suprapubic tenderness or flank pain. Patient was cleared for discharge by orthopedic team. Problems and management plan were discussed with the patient and he verbalized understanding and acceptance Patient was found stable and can be discharged home in guarded prognosis however he needs follow-up as an outpatient. Patient was instructed to follow up with PCP Dr. Brothers within one week and patient agrees Patient was selected to follow up with orthopedic doctor Bhupendra in 1 to 2 weeks and she is already have appointment and 09/09 Physical exam Gen: patient is a AAOx3, no distress CVS: S1-S2, RRR, no murmur Lungs: B/L CTA, no wheezing Abdomen: soft, no distention, no tenderness, positive bowel sounds Extremity: no leg edema or induration Time spent more than 35 minutes Patient Condition at Discharge: Stable Plan - Discharge Summary Discharge Rx Participant: Yes New Discharge Prescriptions: New cefUROXime axetiL [Ceftin] 500 mg PO BID 3 Days #6 tab QUEtiapine [SEROquel] 12.5 mg PO BID PRN tab PRN Reason: Agitation Continue traMADol HCl [Ultram] 50 mg PO TID PRN PRN Reason: Pain Zinc Gluconate [Zinc] 50 mg PO DAILY Ascorbic Acid [Vitamin C] 500 mg PO DAILY Famotidine [Pepcid] 20 mg PO DAILY@0600 Melatonin 3 mg PO HS Ergocalciferol [Vitamin D2 (1250 Mcg = 95346 Iu)] 1,250 mcg PO NINO Diclofenac Sodium Gel [Voltaren 1% Gel] 1 applic TOPICAL Q6H PRN PRN Reason: sternum pain Acetaminophen Tab [Tylenol] 650 mg PO Q4H PRN PRN Reason: Pain Or Fever > 100.5 Sennosides [Senokot] 8.6 mg PO BID PRN PRN Reason: Constipation Lactose-Reduced Food [Ensure Plus] 1 can PO TID amLODIPine [Norvasc] 2.5 mg PO DAILY Cyanocobalamin [Vitamin B-12] 500 mcg PO DAILY Divalproex Sprinkle [Depakote Sprinkle] 125 mg PO DAILY@1700 Aspirin EC [Ecotrin Low Dose] 81 mg PO DAILY Amiodarone [Cordarone] 100 mg PO DAILY Z-Guard 1 applic TOPICAL BID Discharge Medication List Acetaminophen Tab [Tylenol] 650 mg PO Q4H PRN 08/23/23 [History] Amiodarone [Cordarone] 100 mg PO DAILY 08/23/23 [History] Ascorbic Acid [Vitamin C] 500 mg PO DAILY 08/23/23 [History] Aspirin EC [Ecotrin Low Dose] 81 mg PO DAILY 08/23/23 [History] Cyanocobalamin [Vitamin B-12] 500 mcg PO DAILY 08/23/23 [History] Diclofenac Sodium Gel [Voltaren 1% Gel] 1 applic TOPICAL Q6H PRN 08/23/23 [History] Divalproex Sprinkle [Depakote Sprinkle] 125 mg PO DAILY@1700 08/23/23 [History] Ergocalciferol [Vitamin D2 (1250 Mcg = 04551 Iu)] 1,250 mcg PO NINO 08/23/23 [History] Famotidine [Pepcid] 20 mg PO DAILY@0600 08/23/23 [History] Lactose-Reduced Food [Ensure Plus] 1 can PO TID 08/23/23 [History] Melatonin 3 mg PO HS 08/23/23 [History] Sennosides [Senokot] 8.6 mg PO BID PRN 08/23/23 [History] Z-Guard 1 applic TOPICAL BID 08/23/23 [History] Zinc Gluconate [Zinc] 50 mg PO DAILY 08/23/23 [History] amLODIPine [Norvasc] 2.5 mg PO DAILY 08/23/23 [History] traMADol HCl [Ultram] 50 mg PO TID PRN 08/23/23 [History] QUEtiapine [SEROquel] 12.5 mg PO BID PRN tab 08/26/23 [Rx] cefUROXime axetiL [Ceftin] 500 mg PO BID 3 Days #6 tab 08/26/23 [Rx] Follow up Appointment(s)/Referral(s): Augusto Brothers MD [REFERRING] - 1-2 days Delvin Huizar MD [Medical Doctor] - 09/09/23 1:00 pm (or follow up with Dr. Kovacs if she has an upcoming appointment with him. ) Activity/Diet/Wound Care/Special Instructions: Toe touch weightbearing on left leg with a walker Limit left hip abduction if able. Regular diet activity is as tolerated Discharge Disposition: TRANSFER TO SNF/ECF
[2023-08-26 15:48] VITALS: BP 113/64; PULSE 76; TEMP 99
[2023-08-26] MEDS: DIVALPROEX SPRINKLE 125 MG CAP.SPRINK PO SCH (16:40)
[2023-08-29] MEDS ORDERED: ERGOCALCIFEROL 1,250 MCG (50,000 IU) CAPSULE PO SCH (09:00)
== END 2023-08-26 20:45 | DRG 535 ==
LOC: EC 01:54 → 4SSUR 02:47
PROVIDERS: ADMIT Hospitalist; ATTEND Hospitalist
DX: S72.122A Displaced fracture of lesser trochanter of left femur, initial encounter for closed fracture (principal); G93.41 Metabolic encephalopathy; L03.116 Cellulitis of left lower limb; I48.19 Other persistent atrial fibrillation; N39.0 Urinary tract infection, site not specified; E11.22 Type 2 diabetes mellitus with diabetic chronic kidney disease; F03.90 Unspecified dementia, unspecified severity, without behavioral disturbance, psychotic disturbance, mood disturbance, and anxiety; I12.9 Hypertensive chronic kidney disease with stage 1 through stage 4 chronic kidney disease, or unspecified chronic kidney disease; E78.2 Mixed hyperlipidemia; N18.30 Chronic kidney disease, stage 3 unspecified; Z66 Do not resuscitate; E86.0 Dehydration; Z79.82 Long term (current) use of aspirin; Z79.899 Other long term (current) drug therapy; Z96.642 Presence of left artificial hip joint; W19.XXXA Unspecified fall, initial encounter; Y92.129 Unspecified place in nursing home as the place of occurrence of the external cause; Z91.040 Latex allergy status
CPT/HCPCS: 36415; 70450; 71045; 72125; 72170; 73521; 80053; 80306; 80320; 81001; 85025; 85610; 85730; 86850; 86900; 86901; 87086; 96372; 96374; 96375; 96376; 99285